=== PATIENT | female | born 1955 | race Caucasian/White ===

== ENCOUNTER 2024-09-24 22:02 | Emergency (ER) | payer OTHER ==
[~2024-09-24] VITALS: Ht 175.3 cm; Wt 101.2 kg
[2024-09-24] MEDS ORDERED: LACTATED RINGER'S 1,000 ML IV ONE (22:45)
[2024-09-24] MEDS ORDERED: SUMAtriptan succinate 6 MG/0.5 ML VIAL SUB-Q ONE (22:45)
[2024-09-24] MEDS ORDERED: ondansetron HCL 4 MG/2 ML VIAL IV ONE (22:45)
[2024-09-24] MEDS ORDERED: diphenhydrAMINE HCL 50 MG/ML VIAL IV ONE (22:45)
[2024-09-24] MEDS ORDERED: KETOROLAC TROMETHAMINE 15 MG/ML VIAL IV ONE (22:45)
[2024-09-24 23:49] LABS: CORONAVIRUS COVID-19 AG NEGATIVE (NEGATIVE); INFLUENZA A AG NEGATIVE (NEGATIVE); INFLUENZA B AG NEGATIVE (NEGATIVE)
[2024-09-25] MEDS ORDERED: PREVACID15 M1 PO (00:15)
[2024-09-25] MEDS ORDERED: BUTALB-ACETAMI1 EACH PO (01:19)
[2024-09-25] MEDS ORDERED: ONDANSETRON ODT8 MG PO (01:20)
[2024-09-25 01:31] VITALS: BP 158/83
== END 2024-09-25 01:32 | disposition home or self-care (01) ==
LOC: ED 22:02
PROVIDERS: Family Medicine
DX: G43.909 Migraine, unspecified, not intractable, without status migrainosus (principal); Z79.899 Other long term (current) drug therapy
CPT/HCPCS: 36415; 96361; 96374; 96375; 99284-25; J1200; J1885; J2405; J3030; J7121

== ENCOUNTER 2025-05-21 08:13 | Day surgery (SDC) | payer OTHER ==
[~2025-05-21] VITALS: Ht 172.7 cm; Wt 104.3 kg
[~2025-05-21 08:13] MED LIST: BUTALB-ACETAMI1 EACH PO; IBLOOD GLUCOSE TEST STRIP 1 EA TEST VI PRN; LACTATED RINGER'S 1,000 ML IV SCH; LIDOCAINE HCL 1% 5 ML SDV INJ ONE; LIDOCAINE HCL 4% 50 ML BTL TOP SCH; MIDAZOLAM HCL 5 MG/5 ML VIAL IV PRN; ONDANSETRON ODT8 MG PO; PREVACID15 M1 PO; fentaNYL citrate 100 MCG/2 ML VIAL IV PRN
[2025-05-21 08:30] VITALS: BP 123/70
[2025-05-21] MEDS ORDERED: TRAZODONE HCL50 MG PO (08:33)
[2025-05-21] MEDS ORDERED: MIDAZOLAM HCL 5 MG/5 ML VIAL ONE (09:32)
[2025-05-21] MEDS ORDERED: fentaNYL citrate 100 MCG/2 ML VIAL ONE (09:32)
--- NOTE | 2025-05-21 10:23 | NUR ---
05/21/25 Che Oconnor OXYGEN SATURATION 100% ON 2L VIA NC. OXYGEN IS DISCONTINUED AT THIS TIME.
[2025-05-21 11:04] VITALS: BP 143/76
--- NOTE | 2025-05-21 13:55 | OR ---
[facility] [address], [place] [address] Signed DATE OF OPERATION: 05/21/2025 SURGEON: Carrol Mac MD PREOPERATIVE DIAGNOSES: 1. History of Johnson's esophagus with dysplasia 2008. 2. History of vertical banded gastroplasty in 1982. POSTOPERATIVE DIAGNOSES: 1. Cobblestone appearance of distal esophagus. 2. Some retained food in proximal gastric pouch neopylorus allows passage of scope; proximal gastric pouch inflamed. PROCEDURE: Esophagogastroduodenoscopy with biopsies. ANESTHESIA: Intravenous sedation, fentanyl 100 mcg and Versed 5 mg. INDICATION: This 69-year-old white woman has a history of Johnson's esophagus with dysplasia as noted in 2008 in [place]. She has had no surveillance endoscopy since that time, though she was advised to do so. She does have history of vertical banded gastroplasty in 1982. She generally has no symptoms from that. She is on a PPI medication, however. Her physician now is Nik Short in [place]. She is referred at this time to undergo upper endoscopy for surveillance of her Johnson's esophagus with apparent dysplasia. Quite notably, she has no dysphagia. No hematemesis. No weight loss. Indeed, she is 250 pounds. She understands the risk of upper endoscopy including but not limited to bleeding, infection, and perforation and wished to proceed. FINDINGS: The distal esophagus had a white cobblestone appearance worrisome for progression of her dysplastic Johnson's from the past. This was noted extending from the GE junction up to 22 cm. From 22 cm more proximally the mucosa appeared normal. There was no true stricture, however, in the cobblestone appearing esophagus. Typical vertical banded gastroplasty anatomy was noted including a proximal pouch which was rather inflamed and did have retained food. The neopylorus allowed for passage of the scope without impediment. The sycuan stomach including antrum, body and fundus of stomach were reasonably normal as were the sycuan pylorus and duodenum. CLOtest was negative 15 minutes post procedure. Extensive biopsies were taken throughout, but most dominantly Electronically Signed By: CARROL MAC MD 05/21/25 1355 PATIENT NAME: JOSE JACKMAN OPERATIVE REPORT DATE OF : 59 REPORT #: [id number] PHYSICIAN: CARROL MAC MD PCP: NIK SHORT MD REPORT IS CONFIDENTIAL AND NOT TO BE RELEASED WITHOUT AUTHORIZATION [facility] [address], [place] [address] Signed in the distal esophagus of course. Biopsies were also taken at the normal demarcation at 22 cm where nodular changes were no longer noted. DESCRIPTION OF PROCEDURE: The patient was brought to the endoscopy suite and placed in lateral decubitus position, given intravenous sedation to the point of slurred speech and nystagmus with full cardiopulmonary monitoring. A bite block was placed. The patient is edentulous. An Olympus video upper endoscope was passed in the hypopharynx. The vocal cords were normal. Scope was advanced down the esophagus where in the distal portion was noted a remarkable appearance of a cobblestone appearing mucosa, the mucosa itself white in color. There was no sign of actual ulceration and no focal neoplasm proper. The scope was advanced to the stomach without problem. Immediately noted was retained gastric contents. This was suctioned free as much as possible. Neopylorus did allow for passage of the scope into the more sycuan stomach, which was normal and had no fluid retention. Scope was passed through the normal pylorus which appeared normal and into the duodenum, which was also normal. Biopsies were taken of the duodenum to assess for celiac disease. The scope was withdrawn. Biopsies taken of the sycuan antrum for both ELISSA and pathologic testing. Retroflexed view was undertaken showing the fundus of the stomach as would be expected. Scope was withdrawn to the gastric pouch which again was inflamed and which was biopsied and specimen taken also for ELISSA testing there. The same CLOtest was used as noted. The neopylorus though slightly snug, was not tight by any means. The retained gastric contents were suctioned free. Retroflexed view was somewhat challenging, but the flap valve did appear somewhat compromised. Scope was withdrawn indicative of a hiatal hernia. No doubt accounting in part for her reflux issues. Close attention was paid to the distal esophagus where a white soft cobblestone appearing mucosa was noted. Multiple biopsies were taken in this area. The scope was withdrawn to approximately 22 cm from the incisors. The esophagus appeared normal. This area was biopsied to assure no sign of abnormality there. Further withdrawal showed no other findings. The patient was taken to the recovery room in good condition. CONCLUDING DIAGNOSES: 1. Anatomy consistent with vertical banded gastroplasty; gastric pouch inflamed and with some retained food, but no severe gastric outlet obstruction from neopylorus. 2. Normal-appearing duodenum, sycuan pylorus and distal stomach. 3. Cobblestone appearing distal esophagus concordant to possible dysplastic changes related to Johnson's epithelium with the resolution of findings at 22 cm from the incisors. PLAN: She will continue with her Prevacid. She will see us back in the office in 2 to 4 weeks. We will review her pathology report at that time. Further measures will be undertaken based on histology. Electronically Signed By: CARROL MAC MD 05/21/25 3912 PATIENT NAME: JOSE JACKMAN OPERATIVE REPORT DATE OF : 59 REPORT #: [id number] PHYSICIAN: CARROL MAC MD PCP: NIK SHORT MD REPORT IS CONFIDENTIAL AND NOT TO BE RELEASED WITHOUT AUTHORIZATION [address] [place], [place] [address] Signed MD JEREMÍAS Soni/KEATON /[id number] cc: Nik Short MD [place] Copies: ~ Electronically Signed By: CARROL MAC MD 05/21/25 1355 PATIENT NAME: JOSE JACKMAN OPERATIVE REPORT DATE OF : 59 REPORT #: [id number] PHYSICIAN: CARROL MAC MD PCP: NIK SHORT MD REPORT IS CONFIDENTIAL AND NOT TO BE RELEASED WITHOUT AUTHORIZATION
== END 2025-05-21 11:15 | disposition home or self-care (01) ==
LOC: DS 08:13
PROVIDERS: ATTEND Surgery
PROC: 0DB68ZX Excision of Stomach, Via Natural or Artificial Opening Endoscopic, Diagnostic (ICD-10-PCS; 2025-05-21)
PROC: 0DB98ZX Excision of Duodenum, Via Natural or Artificial Opening Endoscopic, Diagnostic (ICD-10-PCS; principal; 2025-05-21 09:05)
DX: K29.50 Unspecified chronic gastritis without bleeding (principal); K22.89 Other specified disease of esophagus; K21.9 Gastro-esophageal reflux disease without esophagitis; E66.9 Obesity, unspecified; Z68.35 Body mass index [BMI] 35.0-35.9, adult; Z79.899 Other long term (current) drug therapy; Z98.890 Other specified postprocedural states; Z87.19 Personal history of other diseases of the digestive system; Z90.49 Acquired absence of other specified parts of digestive tract
CPT/HCPCS: 99153; G0500; J2250; J3010; J7121